=== PATIENT | male | born 1990 ===

== ENCOUNTER 2024-05-29 20:41 | Emergency (ER) | payer OTHER ==
[~2024-05-29 20:41] MED LIST: IBUPROFEN 800 MG TAB ONE
--- NOTE | 2024-07-03 10:49 | XR ---
Patient Kev Mcnulty T ID [id number] Order # EXAMINATION TYPE: XR elbow complete LT DATE OF EXAM: 05/29/2024 COMPARISON: No comparison on downtime PACS HISTORY: Left elbow pain TECHNIQUE: 3 view left elbow FINDINGS: Radius aligns normally with the humerus. Anterior fat pad is elevated. Posterior fat pad is normal. No acute fractures or dislocations evident. Follow up exams can be performed 7-10 days from acute trauma for continued pain. IMPRESSION: 1. No acute osseous abnormality left elbow
== END 2024-05-29 21:50 | disposition home or self-care (01) ==
LOC: EC 20:41
DX: M25.521 Pain in right elbow (principal)
CPT/HCPCS: 99283